=== PATIENT | male | born 1960 | race Caucasian/White ===

== ENCOUNTER 2018-06-05 12:12 | Emergency (ER) | payer BC ==
[~2018-06-05] VITALS: Ht 180.3 cm; Wt 95.3 kg
[2018-06-05] MEDS ORDERED: cefTRIAXone IM 1 GM VIAL IM ONE (13:30)
[2018-06-05] MEDS ORDERED: cefTRIAXone IV Push 1 GM VIAL. IVP ONE (13:33)
[2018-06-05] MEDS ORDERED: CEPH-264 PO (13:41)
[2018-06-05] MEDS ORDERED: HYDR-3165 PO (13:41)
[2018-06-05] MEDS ORDERED: SULF1TAB24 PO (13:41)
--- NOTE | 2018-06-05 13:41 | PHYS DOC ---
Adult General Chief Complaint Chief Complaint: INSECT BITE HPI HPI Patient is a 57 year old right handed male who presents with complaining of erythema and edema of right hand. Patient states for the last 8 days he has had edema and erythema of right hand with puncture wound in index finger and concerns for possible spider bite. Patient states he had small amount of pus drainage since yesterday from the puncture wound. Patient denies fever and chills, nausea and vomiting, focal neuro deficit. Patient is up-to-date with his immunization. Review of Systems Review of Systems Constitutional: Denies fever or chills [] Eyes: Denies change in visual acuity, redness, or eye pain [] HENT: Denies nasal congestion or sore throat [] Respiratory: Denies cough or shortness of breath [] Cardiovascular: No additional information not addressed in HPI [] GI: Denies abdominal pain, nausea, vomiting, bloody stools or diarrhea [] : Denies dysuria or hematuria [] Musculoskeletal: Denies back pain or joint pain [] Integument: Denies rash, reports skin lesions [] Neurologic: Denies headache, focal weakness or sensory changes [] Endocrine: Denies polyuria or polydipsia [] All other systems were reviewed and found to be within normal limits, except as documented in this note. Current Medications Current Medications Current Medications Medications (Trade) Dose Ordered Sig/Cyndi Start Time Stop Time Status Last Admin Dose Admin Ceftriaxone Sodium (Rocephin Im) 1 gm 1X ONCE 06/05/18 12:45 06/05/18 12:46 UNV Ceftriaxone Sodium (Rocephin) 1 gm STK-MED ONCE 06/05/18 13:33 06/05/18 13:34 DC Allergies Allergies Allergies Coded Allergies Type Severity Reaction Last Updated Verified No Known Drug Allergies 06/05/18 No Physical Exam Physical Exam Constitutional: Well developed, well nourished, mild distress, non-toxic appearance. [] HENT: Normocephalic, atraumatic Eyes: PERRLA, EOMI, conjunctiva normal, no discharge. [] Neck: Normal range of motion, no tenderness, supple, no stridor. [] Cardiovascular:Heart rate regular rhythm, no murmur [] Lungs & Thorax: Bilateral breath sounds clear to auscultation [] Skin: Warm, dry, no erythema, no rash. [] Back: No tenderness, no CVA tenderness. [] Extremities: Right hand with moderate edema and erythema and a puncture wound in dorsal of proximal phalanx of index finger with tenderness and mild drainage of pus Neurologic: Alert and oriented X 3, normal motor function, normal sensory function, no focal deficits noted. [] Psychologic: Affect normal, judgement normal, mood normal. [] EKG EKG [] Radiology/Procedures Radiology/Procedures [] Course & Med Decision Making Course & Med Decision Making Evaluation of patient in ER showed 57-year-old male patient with abscess of middle finger with moderate edema and erythema . Patient treated with Rocephin in ER and had drainage of abscess. Patient instructed to follow-up with primary care physician or return to emergency room in 48 hours if not getting better. Patient had blood pressure of 180s without history of hypertension. Patient instructed to record his blood pressure and follow up with her primary care physician. Dragon Disclaimer Dragon Disclaimer This electronic medical record was generated, in whole or in part, using a voice recognition dictation system. Incision and Drainage Indication: Right hand abscess Procedure: The patient was positioned appropriately and the skin over the incision site was prepped with alcohol on normal saline. Digital block was given with 1% lidocaine.. Local anesthesia was given with 1% lidocaine. An incision was then made over the dorsal side of proximal phalanx of index finger and small amount of pus was drained and pussy material was expressed. Loculations were removed. Dressing was applied The patient tolerated the procedure well Complications: none. Departure Departure: Impression: Primary Impression: Abscess of right hand Additional Impression: Elevated blood pressure reading without diagnosis of hypertension Disposition: HOME, SELF-CARE (at 1337) Condition: IMPROVED Referrals: PCP,NO (PCP) Patient Instructions: Abscess, Abscess, Care After, Form - Blood Pressure Record Sheet, How to Take Your Blood Pressure, [id number], Managing Your High Blood Pressure Additional Instructions: Change dressings twice a day and has Return to emergency room in 2 days if does not getting better Follow-up with your primary care physician regarding elevation of blood pressure Scripts Hydrocodone Bit/Acetaminophen (NORCO 5-325 TABLET) 1 Each Tablet 1 TAB PO PRN Q6HRS PRN for PAIN, #10 TAB 0 Refills Prov: ARUNA VITAL MD 06/05/18 Cephalexin (KEFLEX) 500 Mg Capsule 2 CAP PO Q12HR for infection, #28 CAP Prov: ARUNA VITAL MD 06/05/18 Sulfamethoxazole/Trimethoprim (BACTRIM DS TABLET) 1 Each Tablet 1 TAB PO BID for infection, #14 TAB Prov: ARUNA VITAL MD 06/05/18 Problem Qualifiers ARUNA VITAL MD Jun 05, 2018 13:41
[2018-06-05 13:58] VITALS: BP 168/104
== END 2018-06-05 14:11 | disposition home or self-care (01) ==
LOC: ER 12:12
DX: L03.011 Cellulitis of right finger (principal); R03.0 Elevated blood-pressure reading, without diagnosis of hypertension
CPT/HCPCS: 26010; 96372; 99283; J0696; 10060